=== PATIENT | female | born 1995 | race Caucasian/White ===

== ENCOUNTER 2025-02-05 15:53 | Outpatient (CLI) | payer OTHER, SELFPAY | END 2025-02-05 23:59 | disposition home or self-care (01) | LOC: RT 15:54 | PROVIDERS: PCP Pediatrics; Visit Provider Physician Assistant | DX: I49.1 Atrial premature depolarization (principal); I49.3 Ventricular premature depolarization; I47.11 Inappropriate sinus tachycardia, so stated; F41.9 Anxiety disorder, unspecified | CPT/HCPCS: 93270 ==

== ENCOUNTER 2025-02-20 14:02 | Outpatient (CLI) | payer OTHER, SELFPAY ==
--- OUTSIDE RECORDS SUMMARY | 2025-02-20 14:05 | XMS_ITS | Clinical Summary ---
Author Organization [facility] Address [address] [place] [address] Care Team Providers Care Creative/Art Director Name Role Phone Alex Rosario MD Primary Care Provider [phone] Allergies No known active allergies Medications ibuprofen (ADVIL,MOTRIN) 600 MG tablet Take 1 tablet by mouth Every 6 (Six) Hours. 30 tablet 07/19/2022 Active Active Problems Problem Noted Date Diagnosed Date 6 weeks follow-up 09/11/2022 Encounter for initial insert ion of intrauterine contraceptive device 09/11/2022 Pap test, as part of routine gynecological exami [facility] 09/11/2022 Resolved Problems Problem Noted Date Diagnosed Date Resolved Date Supervision of normal 08/14/2022 09/11/2022 Low back pain during pregnan cy, third trimester 08/14/2022 09/11/2022 07/17/2022 09/11/2022 False labor after 37 weeks o f gestation without delivery 07/12/2022 09/11/2022 screening for streptococcus B 06/23/2022 09/11/2022 UTI (urinary tract infection ) during , second trimester 03/29/2022 09/11/2022 Echogenic focus of heart of fetus affecting antepartum care of mother 03/10/2022 09/11/2022 Overview (03/10/2022): 32wk scan Declined genetic screening 08/26/2018 12/10/2021 labor in third trimester 07/22/2018 12/10/2021 labor in third trime ster without delivery 07/20/2018 12/10/2021 Group B streptococcal bacteriuria 07/20/2018 12/10/2021 07/19/2018 09/11/2022 Immunizations Immunization Administration Dates Next Due Tdap 05/05/2022 Family History Medical History Relation Name Comments Seizures Brother Heart murmur Father ADD / ADHD Mother Asthma Mother Bipolar disorder Mother Seizures Mother Relation Name Status Comments Brother Alive Father Alive Mother Alive Social History Tobacco Use Types Packs/Day Years Used Date Smoking Tobacco: Never Smokeless Tobacco: Never Tobacco Cessation:Counseling Given: Not Answered Alcohol Use Standard Drinks/Week Comments No 0 (1 standard drink = 0.6 oz pur e alcohol) AUDIT-C Answer Date Recorded Q1: How often do you have a drink containing alcohol? Never 07/17/2022 Q2: How many drinks containi ng alcohol do you have on a typical day when you are drinking? Patient does not drink Q3: How often do you have si x or more drinks on one occasion? Never 07/17/2022 [place] Depression Scale Answer Date Recorded Retired [place] Depression Score 0 09/08/2022 Retired EPD Scale: Thought of Harming Self Unrec ognized value 09/08/2022 Abuse Screen Answer Date Recorded Unsafe at Home or Work/School Not on file Feels Threatened by Someone? Not on file 06/2023 Does Anyone Keep You from Co ntacting Others or Doint Things Outside the Home? Not on file 07/20/2023 Physical Sign of Abuse Present Not on file 1 09/19/2022 Housing Stability Answer Date Recorded Current Living Arrangements Not on file 07/11 Potentially Unsafe Housing Conditions Not on tremaine e 07/20/2023 Family and Community Support Answer [place] e Recorded Help with Day-to-Day Activities Not on file 06/18/2023 Lonely or Isolated Not on file 06/18/2023 Employment Answer Date Recorded Do you want help finding or keeping work or a yuliana b? Not on file 06/18/2023 Disabilities Answer Date Recorded Concentrating, Remembering, or Making Decisions Difficulty Not on file 07/20/2023 Doing Errands Independently Difficulty Not on fi le 07/20/2023 Education Answer Date Recorded Help with school or training? Not on file Preferred Language Not on file 06/18/2023 Comments No Sex and Gender Information Value Date Recorded Sex Assigned at Not on file Legal Sex Female 1:14 PM EDT Gender Identity Not on file Sexual Orientation Not on file Occupation Industry Job Start Date Job End Date Not on file Not on file Not on file Not on file Last Filed Vital Signs Vital Sign Reading Time Taken Comments Blood Pressure 114/62 09/08/2022 9:54 AM EST Pulse 58 07/19/2022 7:55 AM EST Temperature 36.7 C (98.1 F) 07/19/2022 7:55 AM EST Respiratory Rate 18 09/08/2022 9:54 AM EST Oxygen Saturation 100% 07/21/2016 7:34 PM EST Inhaled Oxygen Concentration - - Weight 69.4 kg (153 lb) 09/08/2022 9:54 AM EST Height 154.9 cm (5' 0.98 ) 09/08/2022 9:54 AM ES T Body Mass Index 28.92 09/08/2022 9:54 AM EST Plan of Treatment Health Maintenance Due Date Last Done Comments Annual Gynecologic Pelvic an d Breast Exam 1995 ANNUAL PHYSICAL 08/19/2018 COVID-19 Vaccine (3 - 2023-2 5 season) 2024 07/29/2021, 06/08/2021 INFLUENZA VACCINE 03/10/2025 TDAP/TD VACCINES (3 - Td or Tdap) 05/05/2032 05/05/2022, 01/20/2020 HEPATITIS C SCREENING Completed 12/09/2021 Pneumococcal Vaccine 0-49 Aged Out No longer eligible based on patient's age to complete this topic Procedures Procedure Name Priority Date/Time Associated Diagnosis Comments OBSTETRIC PANEL Routine 12/09/2021 9:17 AM EDT from Last 3 Months or Most Recently Relevant to Health Maintenance Results * Obstetric Panel (12/09/2021 9:17 AM EDT) Hepatitis B Surface Ag Negative Negative [facility] Hep C Virus Ab <0.1 0.0 - 0.9 s/co ratio [facility] Comment: Negative: < 0.8 Indeterminate: 0.8 - 0.9 Positive: > 0.9 The CDC recommends that a positive HCV antibody result be followed up with a HCV Nucleic Acid Amplification test (110804). RPR Non Reactive Non Reactive [facility] Rubella Antibodies, IgG 1.20 Immune >0.99 index [facility] Comment: Non-immune <0.90 Equivocal 0.90 - 0.99 Immune >0.99 ABO Type O [facility] Rh Factor Positive [facility] Comment: Please note: Prior records for this patient's ABO / Rh type are not available for additional verification. Antibody Screen Negative Negative [facility] WBC 6.3 3.4 - 10.8 x10E3/uL [facility] RBC 4.86 3.77 - 5.28 x10E6/uL [facility] Hemoglobin 14.2 11.1 - 15.9 g/dL [facility] Hematocrit 43.0 34.0 - 46.6 % [facility] MCV 89 79 - 97 fL [facility] MCH 29.2 26.6 - 33.0 pg [facility] MCHC 33.0 31.5 - 35.7 g/dL [facility] RDW 12.0 11.7 - 15.4 % [facility] Platelets 213 150 - 450 x10E3/uL [facility] Neutrophil Rel % 67 Not Estab. % [facility] Lymphocyte Rel % 24 Not Estab. % [facility] Monocyte Rel % 6 Not Estab. % [facility] Eosinophil Rel % 1 Not Estab. % [facility] Basophil Rel % 1 Not Estab. % [facility] Neutrophils Absolute 4.4 1.4 - 7.0 x10E3/uL [facility] Lymphocytes Absolute 1.5 0.7 - 3.1 x10E3/uL [facility] Monocytes Absolute 0.4 0.1 - 0.9 x10E3/uL [facility] Eosinophils Absolute 0.0 0.0 - 0.4 x10E3/uL [facility] Basophils Absolute 0.0 0.0 - 0.2 x10E3/uL [facility] Immature Granulocyte Rel % 1 Not Estab. % [facility] Immature Grans Absolute 0.0 0.0 - 0.1 x10E3/uL [facility] 12/09/2021 9:17 AM EDT 12/09/2021 Narrative [facility]) - 12/10/2021 9:10 AM EDT Performed at: - [facility] [address] [place], [place] [id number] Housekeeper/Custodian/Laundry Worker: Alcides Porter PhD, Phone: [phone] Patient Fasting: N us Hayde Garcia MD LAB BLOOD ORDERABLES Final Result [facility] [address] [place] [address], [place] [phone] [facility] [address] [place] [address], [place] [phone] from Last 3 Months or Most Recently Relevant to Health Maintenance Insurance [employer] Advance Directives * CPR (Attempt to Resuscitate) (Latest Code Status on File) Date Activated Date Inactivated Comments 07/17/2022 12:43 PM 07/19/2022 3:02 PM Question Answer Comments Code Status (Patient has no pulse and is not breathing): CPR (Attempt to Resuscitate) Medical Interventions (Patie nt has pulse or is breathing): Full * CPR (Attempt to Resuscitate) Date Activated Date Inactivated Comments 08/26/2018 7:31 PM 08/28/2018 3:17 PM Question Answer Comments Code Status (Patient has no pulse and is not breathing): CPR (Attempt to Resuscitate) Medical Interventions (Patie nt has pulse or is breathing): Full * CPR (Attempt to Resuscitate) Date Activated Date Inactivated Comments 08/26/2018 9:37 AM 08/26/2018 7:31 PM Question Answer Comments Code Status (Patient has no pulse and is not breathing): CPR (Attempt to Resuscitate) Medical Interventions (Patie nt has pulse or is breathing): Full * CPR (Attempt to Resuscitate) Date Activated Date Inactivated Comments 07/19/2018 3:24 PM 07/22/2018 1:06 PM Question Answer Comments Code Status (Patient has no pulse and is not breathing): CPR (Attempt to Resuscitate) Medical Interventions (Patie nt has pulse or is breathing): Full Care Teams Creative/Art Director Relationship Specialty Start Date End Date Alex Rosario MD [address] [place] [address] PCP - General Internal Medicine 03/28/22
--- OUTSIDE RECORDS SUMMARY | 2025-02-20 14:05 | XMS_ITS | Data Portability ---
Author Organization [place] - NT [facility] & JUAN Carvalho ADMIN Address [address] [place] [address] Care Team Providers Care Brasswind Instrument Repairer Name Role Phone ALICIA ROSARIOEL Primary Care Provider Assessment No assessment recorded. Plan of Treatment Reminders Order Date Submit Date Provider Last Modified By Organization Details Last Modified Time Details Appointments None recorded. Lab CBC w/ auto diff 2024 025 [facility], [address], [place], [address], 5 16:13:12 CMP, serum or plasma 2024 025 [facility], [address], [place], [address], 5 16:13:14 TSH + free T4, serum 2024 025 [facility], [address], [place], [address], 5 16:13:11 Referral general surgeon referral 2023 024 CAMILLE Fajardo MD, [address], [place], [address], 4 09:40:20 Procedures holter monitor placement (PROC) - 72 hour 2024 025 [facility] (Centralized Scheduling), [address], [place], [address], 5 15:16:11 Surgeries None recorded. Imaging US, echocardiog annette, transthorac ic, complete, w/ color flow 2024 025 [facility], [address], [place], [address], 5 04:09:05 electrocard iogram 2024 025 [facility], [address], [place], [address], 5 09:17:20 US, renal 2023 024 [email or web address] [facility] (Centralized Scheduling), [address] [facility], [place], [address], 4 09:02:21 Medication Orders fluticasone propionate 50 mcg/actuati on nasal spray,suspe nsion 2024 025 [id number], [address] [place], [address], 5 09:14:50 loratadine 10 mg tablet 2024 025 [id number], [address] [place], [address], 5 09:14:54 omeprazole 40 mg capsule,del ayed release 2023 024 [email or web address] [facility]armacy #[id number], [address] [place], [address], 5 13:14:35 Patient TargetsNo targets recorded. Patient InstructionsNo instructions recorded. Reason for Referral General Surgeon Referral for Cholelithiasis without obstruction Referring Physician: Alex Rosario, Internal Medicine, Encounter Date: 04/08/2024 Results Created Date Observation Date Name Description Value Unit Range Abnormal Flag Note LastModifiedBy Organization Detail LastModifiedTime 09/25/19 25 09/26/2024 TSH+F REE T4 TSH 1.070 uIU/m L 0.450- 4.500 normal Not Available [facility] ([facility]) [address] [place], [address], 09/26/2024 16:13:11 09/25/19 25 09/26/2024 TSH+F REE T4 T4,free(dire ct) 1.08 NG/dL 0.82-1 .77 normal Not Available [facility] ([facility]) [address] [place], [address], 09/26/2024 16:13:11 09/25/19 25 09/26/2024 CBC WITH DIFFE RENTI AL/PL ATELE T WBC 8.6 x10e3 /uL 3.4-10 .8 normal Not Available [facility] ([facility]) [address] [place], [address], 09/26/2024 16:13:12 09/25/19 25 09/26/2024 CBC WITH DIFFE RENTI AL/PL ATELE T RBC 4.77 x10e6 /uL 3.77-5 .28 normal Not Available [facility] ([facility]) [address] [place], [address], 09/26/2024 16:13:12 09/25/19 25 09/26/2024 CBC WITH DIFFE RENTI AL/PL ATELE T hemoglobin 13.0 g/dL 11.1-1 5.9 normal Not Available [facility] ([facility]) [address] [place], [address], 09/26/2024 16:13:12 09/25/19 25 09/26/2024 CBC WITH DIFFE RENTI AL/PL ATELE T hematocrit 41.1 % 34.0-4 6.6 normal Not Available [facility] ([facility]) [address] [place], [address], 09/26/2024 16:13:12 09/25/19 25 09/26/2024 CBC WITH DIFFE RENTI AL/PL ATELE T MCV 86 fL 79-97 normal Not Available [facility] ([facility]) [address] [facility], [place], [address], 09/26/2024 16:13:12 09/25/19 25 09/26/2024 CBC WITH DIFFE RENTI AL/PL ATELE T MCH 27.3 pg 26.6-3 3.0 normal Not Available [facility] ([facility]) [address] [facility], [place], [address], 09/26/2024 16:13:12 09/25/19 25 09/26/2024 CBC WITH DIFFE RENTI AL/PL ATELE T MCHC 31.6 g/dL 31.5-3 5.7 normal Not Available [facility] ([facility]) [address] [facility], [place], [address], 09/26/2024 16:13:12 09/25/19 25 09/26/2024 CBC WITH DIFFE RENTI AL/PL ATELE T RDW 13.8 % 11.7-1 5.4 Not Available [facility] ([facility]) [address] [facility], [place], [address], 09/26/2024 16:13:12 09/25/19 25 09/26/2024 CBC WITH DIFFE RENTI AL/PL ATELE T platelets 225 x10e3 /uL 150-45 0 normal Not Available [facility] ([facility]) [address] [place], [address], 09/26/2024 16:13:12 09/25/19 25 09/26/2024 CBC WITH DIFFE RENTI AL/PL ATELE T neutrophils 74 % not estab. normal Not Available [facility] ([facility]) [address] [place], [address], 09/26/2024 16:13:12 09/25/19 25 09/26/2024 CBC WITH DIFFE RENTI AL/PL ATELE T lymphs 19 % not estab. normal Not Available [facility] ([facility]) [address] [facility], [place], [address], 09/26/2024 16:13:12 09/25/19 25 09/26/2024 CBC WITH DIFFE RENTI AL/PL ATELE T monocytes 6 % not estab. normal Not Available [facility] ([facility]) [address] [facility], [place], [address], 09/26/2024 16:13:12 09/25/19 25 09/26/2024 CBC WITH DIFFE RENTI AL/PL ATELE T eos 1 % not estab. normal Not Available [facility] ([facility]) [address] [facility], [place], [address], 09/26/2024 16:13:12 09/25/19 25 09/26/2024 CBC WITH DIFFE RENTI AL/PL ATELE T basos 0 % not estab. normal Not Available [facility] ([facility]) [address] [facility], [place], [address], 09/26/2024 16:13:12 09/25/19 25 09/26/2024 CBC WITH DIFFE RENTI AL/PL ATELE T immature cells CRUSHER TENDER Not Available [facility] ([facility]) [address] [place], [address], 09/26/2024 16:13:12 09/25/19 25 09/26/2024 CBC WITH DIFFE RENTI AL/PL ATELE T neutrophils (absolute) 6.4 x10e3 /uL 1.4-7. 0 normal Not Available [facility] ([facility]) [address] [place], [address], 09/26/2024 16:13:12 09/25/19 25 09/26/2024 CBC WITH DIFFE RENTI AL/PL ATELE T lymphs (absolute) 1.6 x10e3 /uL 0.7-3. 1 normal Not Available [facility] ([facility]) [address] [facility], [place], [address], 09/26/2024 16:13:12 09/25/19 25 09/26/2024 CBC WITH DIFFE RENTI AL/PL ATELE T monocytes(ab solute) 0.5 x10e3 /uL 0.1-0. 9 normal Not Available [facility] ([facility]) [address] [facility], [place], [address], 09/26/2024 16:13:12 09/25/19 25 09/26/2024 CBC WITH DIFFE RENTI AL/PL ATELE T eos (absolute) 0.0 x10e3 /uL 0.0-0. 4 normal Not Available [facility] ([facility]) [address] [facility], [place], [address], 09/26/2024 16:13:12 09/25/19 25 09/26/2024 CBC WITH DIFFE RENTI AL/PL ATELE T baso (absolute) 0.0 x10e3 /uL 0.0-0. 2 normal Not Available [facility] ([facility]) [address] [place], [address], 09/26/2024 16:13:12 09/25/19 25 09/26/2024 CBC WITH DIFFE RENTI AL/PL ATELE T immature granulocytes 0 % not estab. Not Available [facility] ([facility]) [address] [place], [address], 09/26/2024 16:13:12 09/25/19 25 09/26/2024 CBC WITH DIFFE RENTI AL/PL ATELE T immature grans (abs) 0.0 x10e3 /uL 0.0-0. 1 Not Available [facility] ([facility] [address] [place], [address], 09/26/2024 16:13:12 09/25/19 25 09/26/2024 CBC WITH DIFFE RENTI AL/PL ATELE T NRBC CRUSHER TENDER Not Available [facility] ([facility]) [address] [facility], [place], [address], 09/26/2024 16:13:12 09/25/19 25 09/26/2024 CBC WITH DIFFE RENTI AL/PL ATELE T hematology comments: CRUSHER TENDER Not Available [facility] ([facility]) [address] [facility], [place], [address], 09/26/2024 16:13:12 09/25/19 25 09/26/2024 COMP. METAB OLIC PANEL (14) glucose 89 mg/dL 70-99 normal Not Available [facility] ([facility]) [address] [facility], [place], [address], 09/26/2024 16:13:14 09/25/19 25 09/26/2024 COMP. METAB OLIC PANEL (14) BUN 10 mg/dL 6-20 normal Not Available [facility] ([facility]) [address] [facility], [place], [address], 09/26/2024 16:13:14 09/25/19 25 09/26/2024 COMP. METAB OLIC PANEL (14) creatinine 0.66 mg/dL 0.57-1 .00 normal Not Available [facility] ([facility]) [address] [facility], [place], [address], 09/26/2024 16:13:14 09/25/19 25 09/26/2024 COMP. METAB OLIC PANEL (14) BUN/creatini ne ratio 15 9-23 normal Not Available [facility] ([facility]) [address] [facility], [place], [address], 09/26/2024 16:13:14 09/25/19 25 09/26/2024 COMP. METAB OLIC PANEL (14) sodium 142 mmol/ L 134-14 4 normal Not Available [facility] ([facility]) [address] [facility] [place], [address], 09/26/2024 16:13:14 09/25/19 25 09/26/2024 COMP. METAB OLIC PANEL (14) potassium 4.5 mmol/ L 3.5-5. 2 normal Not Available [facility] ([facility]) [address] [facility] [place], [address], 09/26/2024 16:13:14 09/25/19 25 09/26/2024 COMP. METAB OLIC PANEL (14) chloride 109 mmol/ L 96-106 above high normal Not Available [facility] ([facility]) [address] [facility] [place], [address], 09/26/2024 16:13:14 09/25/19 25 09/26/2024 COMP. METAB OLIC PANEL (14) carbon dioxide, total 21 mmol/ L 20-29 normal Not Available [facility] ([facility]) [address] [facility] [place], [address], 09/26/2024 16:13:14 09/25/19 25 09/26/2024 COMP. METAB OLIC PANEL (14) calcium 9.0 mg/dL 8.7-10 .2 normal Not Available [facility] ([facility]) [address] [facility] [place], [address], 09/26/2024 16:13:14 09/25/19 25 09/26/2024 COMP. METAB OLIC PANEL (14) protein, total 6.5 g/dL 6.0-8. 5 normal Not Available [facility] ([facility]) [address] [facility] [place], [address], 09/26/2024 16:13:14 09/25/19 25 09/26/2024 COMP. METAB OLIC PANEL (14) albumin 4.4 g/dL 3.9-4. 9 normal Not Available [facility] ([facility]) [address] [facility] [place], [address], 09/26/2024 16:13:14 09/25/19 25 09/26/2024 COMP. METAB OLIC PANEL (14) globulin, total 2.1 g/dL 1.5-4. 5 Not Available [facility] ([facility]) [address] [facility] [place], [address], 09/26/2024 16:13:14 09/25/19 25 09/26/2024 COMP. METAB OLIC PANEL (14) bilirubin, total 0.6 mg/dL 0.0-1. 2 normal Not Available [facility] ([facility]) [address] [facility] [place], [address], 09/26/2024 16:13:14 09/25/19 25 09/26/2024 COMP. METAB OLIC PANEL (14) alkaline phosphatase 61 IU/L 44-121 normal Not Available [facility]) [address] [facility] [place], [address], 09/26/2024 16:13:14 09/25/19 25 09/26/2024 COMP. METAB OLIC PANEL (14) AST (SGOT) 22 IU/L 0-40 normal Not Available [facility] ([facility]) [address] [facility] [place], [address], 09/26/2024 16:13:14 09/25/19 25 09/26/2024 COMP. METAB OLIC PANEL (14) ALT (SGPT) 23 IU/L 0-32 normal Not Available [facility] ([facility]) [address] [facility] [place], [address], 09/26/2024 16:13:14 04/14/20 24 , [email or web address] foote No observ ation record ed. [email or web address] Not Available 09:22:22 08/2305/02/2024 renal ,bila teral US [facility] [address] [place] [address] Phone: Fax: Name: EMILY BOBO SA Exam Date: : [birth year] Age 28 years Gender : F Access ion: [id number] Physic kevin: Alex Rosario Facili ty: [facility] Facili ty HSV: Outpat ient Exam: RENAL, BILATE RAL US EXAM:U S Retrop eriton eal Limite d, Renal CLINIC AL INDICA TION:h ydrone phrosi s TECHNI QUE:Re al-sundeep e limite d ultras ound of the retrop eriton eum with image docume ntatio n. COMPAR ROYA:N o releva nt prior studie s availa ble. FINDIN GS: RIGHT KIDNEY :Unrem arkabl e.The right kidney measur es 10.7 cm in length . LEFT KIDNEY :Unrem arkabl e.The left kidney measur es 9.7 cm in length . IMPRES SHARON:? Normal retrop eriton eal ultras ound. No hydron ephros is. Electr onical ly signed by:Lucas foote 11/2023 07:52 PM EDT RP Workst ation: [id number] Dictat ed By: Lucas Dobson Transc ribed By: Transc ribed On: 9:23 AM Electr onical ly signed by: Lucas Dobson Thank you for referr sandra BOBO EMILY SA to [facility]. Legall y authen ticate d by MP BOYER 05-02 09:23: 00 CC'ed Logic: Orderi ng Provid er: AMINA CAMEJO CC Provid er: AMINA CAMEJO Attend ing Provid er: AMINA CAMEJO Referr ing Provid er: AMINA CAMEJO Admitt ing Provid er: AMINA [address] [place] [address] - Physical Therapy [address] [facility], [place], [address], 06/11/2024 11:16:05 10/22/19 25 10/10/[address] or place ment (PROC ) No observ ation record ed. [facility] [address] [place], [address], 10/26/2024 20:42:37 10/22/19 25 10/10/2024 HOLTER MONITO R EMILY BOBO [facility] [place] 5 2 HOLTER REPORT PROVID ER: Hugo Guthrie MD, [facility] Date of study was 2024 to 2024. REQUES CAROL BY: Alex Rosario . FINDIN GS: Underl pebbles rhythm was sinus. Heart rate rangin g from 41 to 127 beats per minute . Averag e heart rate of 68 beats per minute . 16 PVCs were noted. No PACs noted. Patien t trigge red event corres ponded to sinus rhythm with heart rate rangin g from 51 to 90 beats per minute with no associ ated arrhyt hmias. IMPRES SHARON: Underl pebbles rhythm was sinus. The patien t's sympto ms were not associ ated with any arrhyt hmias. DICTAT ED BY: Hugo Guthrie MD, [facility] JT/MOD L DD: 2024 14:14: 50 DT: 2024 16:09: 51 [id number] Electr onical ly Signed By: PAMELA Islas 0 10-22 13:47: 16 CC'ed Logic: Orderi ng Provid er: PAMELA south[address] [facility] - Physical Therapy [address], [place], [address], 10/26/2024 19:07:25 12/05/19 25 12/05/2024 elect robin vega am No observ ation record ed. [facility] [address], [place], [address], 12/05/2024 09:17:31 03/28/20 25 12/04/2024 elect robin vega am No observ ation record ed. [facility] Heart [facility] [address], [place], [address], 12/05/2024 09:17:20 Result Notes None recorded. Problems Name Problem SNOMED Code Status Onset Date Resolution Date Notes Provider Name and Address Organization Details Recorded Time Near syncope 946597693 Active 2024 Hugo Guthrie MD [address], [place], [address] , [place] - NT [facility] & [place] 5 09:40:54 Allergic rhinitis 65137580 Active China coronel, [facility] & [place] 2 15:37:10 Esophageal dysmotility 336654752 [facility] [place] 2 15:37:10 Fatigue 57085851 Active China coronel, [place] - [facility] & [place] 2 15:37:10 Problem Notes None recorded. Procedures Surgical History Date Name Laterality Status Provider Name and Address Organization Details Recorded Time 04/23/20 24 Cholecystectomy completed Alfonso Krishnan [facility] & [place] 04/29/2024 14:18:01 07/17/20 22 Date of Last Pap Smear completed Althea Negrete [facility] & [place] 04/08/2024 13:25:38 Imaging Results None recorded. Procedure Notes None recorded. Medical Equipment None Reported. Allergies No known drug allergies Medications Name Sig Start Date Stop Date Status Note LastModified by Organization Details LastModified Time azithromyci n 250 mg tablet TAKE 2 TABLETS BY MOUTH TODAY, THEN TAKE 1 TABLET DAILY FOR 4 DAYS 04/07 completed Not Available Not Available Not Available omeprazole 40 mg capsule,del ayed release TAKE 1 CAPSULE BY MOUTH EVERY DAY active Not Available Not Available No t Available acetaminoph en 500 mg tablet 09/25 completed Not Available Not Available Not Available ketorolac 10 mg tablet 04/07 completed Not Available Not Available Not Available prednisone 10 mg tablets in a dose pack PLEASE SEE ATTACHED FOR DETAILED DIRECTION S 09/25 completed Not Available Not Available Not Available oxycodone-a cetaminophe n 5 mg-325 mg tablet 05/06 completed Not Available Not Available Not Available Pre-Rosi tablet Take 1 tablet every day by oral route. 04/07 completed Not Available Not Available Not Available meclizine 25 mg tablet TAKE 1 TABLET 3 TIMES A DAY BY ORAL ROUTE NEEDED. 09/25 completed Not Available Not Available Not Available cephalexin 500 mg capsule TAKE 1 CAPSULE BY MOUTH THREE TIMES A DAY FOR 3 DAYS THEN 1 CAPSULE EVERY DAY THEREAFTE R 06/20 completed Not Available Not Available Not Available azelastine 137 mcg (0.1 %) nasal spray INSTILL 2 SPRAYS IN EACH NOSTRIL TWICE DAILY active Not Available Not Available No t Available ibuprofen 600 mg tablet 09/25 completed Not Available Not Available Not Available Pepcid 20 mg tablet Take 1 tablet twice a day by oral route. 04/08 completed Not Available Not Available Not Available methylpredn isolone 4 mg tablets in a dose pack TAKE 6 TABLETS ON DAY 1 DIRECTED ON PACKAGE AND DECREASE BY 1 TAB EACH DAY FOR A TOTAL OF 6 DAYS 04/07 completed Not Available Not Available Not Available albuterol sulfate HFA 90 mcg/actuati on aerosol inhaler INHALE 2 PUFFS INTO THE LUNGS EVERY 4 HOURS NEEDED 12/04 completed Not Available Not Available Not Available ondansetron 4 mg disintegrat ing tablet 04/07 completed Not Available Not Available Not Available fluticasone propionate 50 mcg/actuati on nasal spray,suspe nsion INSTILL 2 SPRAYS BY INTRANASA L ROUTE EVERY DAY 12/04 completed Not Available Not Available Not Available escitalopra m 10 mg tablet TAKE 1 TABLET BY MOUTH EVERY DAY 01/20 completed Not Available Not Available Not Available escitalopra m 20 mg tablet TAKE 1 TABLET BY MOUTH EVERY DAY active Not Available Not Available No t Available Allergy Relief (loratadine ) 10 mg tablet TAKE ONE TABLET BY MOUTH EVERY DAY active Not Available Not Available No t Available Prilosec OTC 20 mg tablet,beatriz yed release Take by oral route. 04/08 completed Not Available Not Available Not Available Vitals Date Recorded Body height Body mass index (BMI) Body weight Body temperature Heart rate Systolic blood pressure Diastolic blood pressure Provider Name and Address Organization Details Last Updated DateTime 5 154.94 cm 26.5 kg/m2 12737.3 7 g 98.9 [degF] 82 /min 114 mm[Hg] 71 mm[Hg] Althea ZAMUDIO - [facility] & [place] 5 13:16:01 Date Recorded Body height Body mass index (BMI) Body weight Oxygen saturation Oxygen saturation in Arterial blood by Pulse oximetry Heart rate Systolic blood pressure Diastolic blood pressure Provider Name and Address Organization Details Last Updated DateTime 5 154.94 cm 26.5 kg/m2 15191.9 3 g 98 % 98 % 55 /min 118 mm[Hg] 80 mm[Hg] Irina Abdirizak ZAMUDIO - [facility]NT [facility] & [place] 5 09:16:11 Date Recorded Body temperature Body weight Heart rate Systolic blood pressure Diastolic blood pressure Provider Name and Address Organization Details Last Updated DateTime 04/08/2024 98.7 [degF] 67669.1 4 g 70 /min 109 mm[Hg] 73 mm[Hg] Althea Caden ROBB - [facility] & [place] 4 13:30:41 Date Recorded Body height Body mass index (BMI) Body weight Body temperature Oxygen saturation Oxygen saturation in Arterial blood by Pulse oximetry Heart rate Systolic blood pressure Diastolic blood pressure Provider Name and Address Organization Details Last Updated DateTime 4 154.94 cm 23.1 kg/m2 01461.2 7 g 97.2 [degF] 100 % 100 % 89 /min 102 mm[Hg] 72 mm[Hg] Alfonso ZAMUDIO - [facility]NT [facility] & [place] 4 09:01:24 Date Recorded Body height Body mass index (BMI) Body weight Body temperature Oxygen saturation Oxygen saturation in Arterial blood by Pulse oximetry Heart rate Systolic blood pressure Diastolic blood pressure Provider Name and Address Organization Details Last Updated DateTime 4 154.94 cm 23.8 kg/m2 65043.6 4 g 98.6 [degF] 100 % 100 % 96 /min 112 mm[Hg] 72 mm[Hg] Alfonso Brown [facility] & [place] 09:12:56 Social History Question Answer Notes LastModified by Organizat ion Details LastModified Time Tobacco Smoking Status Never Smoker Althea coronel, ROBB [facility] & [place] 04/08/2024 13:25:45 Do You Have An Advance Directive? No [email or web address] Information not available 04/08/2024 Do You Wear A Helmet When Biking? Yes [email or web address] Information not available 04/08/2024 Are You Blind Or Do You Have Difficulty Seeing? Yes Glasses [email or web address] Information not available 04/08/2024 Is Blood Transfusion Acceptable In An Emergency? Yes [email or web address] Information not available 04/08/2024 What Is Your Level Of Caffeine Consumption? None Information not available 12/04/2024 In The 14 Days Before Symptom Onset, Have You Had Close Contact With A Laboratory-confir med COVID-19 While That Case Was Ill? No [email or web address] Information not available 04/08/2024 In The 14 Days Before Symptom Onset, Have You Had Close Contact With A Person Who Is Under Investigation For COVID-19 While That Person Was Ill? No [email or web address] Information not available 04/08/2024 Have You Been To An Area Known To Be High Risk For COVID-19? No [email or web address] Information not available 04/08/2024 Are You Deaf Or Do You Have Serious Difficulty Hearing? No [email or web address] Information not available 04/08/2024 What Type Of Diet Are You Following? REGULAR Information not available 04/08/2024 Have You Processed Blood Or Body Fluids From An Ebola Virus Disease Patient Without Appropriate PPE? No [email or web address] Information not available 04/08/2024 Do You Reside In Or Have You Traveled To An Area Where Ebola Virus Transmission Is Active? No [email or web address] Information not available 04/08/2024 Have There Been Any Changes To Your Family Or Social Situation? No [email or web address] Information no t available 04/08/2024 What Is The Fluoride Status Of Your Home? Fluoridated [email or web address] Information not available 04/08/2024 Are There Any Guns Present In Your Home? No [email or web address] Information not available 04/08/2024 Have You Recently Or Are You Planning To Travel To An Area With Zika Virus? No Information not available 04/08/2024 Do You Use Insect Repellent Routinely? No [email or web address] Information not available 04/08/2024 Do You Feel Safe At Home? Yes [email or web address] Information not available 04/08/2024 Do You Have A Medical Power Of Dumbwaiter Operator? No [email or web address] Information not available 04/08/2024 What Was The Date Of Your Most Recent Tobacco Screening? 04/07/2024 Information not available 04/08/2024 Do You Have Any Pets? Yes Outdoors [email or web address] Information not available 04/08/2024 What Is Your Relationship Status? [email or web address] Information not available 04/08/2024 Do You Use Your Seat Belt Or Car Seat Routinely? Yes [email or web address] Information not available 04/08/2024 Are You Sexually Active? Yes Information not available 04/08/2024 Do You Have Smoke And Carbon Monoxide Detectors In Your Home? Yes [email or web address] Information not available 04/08/2024 Are You Passively Exposed To Smoke? No [email or web address] Information no t available 04/08/2024 Do You Use Sunscreen Routinely? No [email or web address] Information not available 04/08/2024 Has Tobacco Cessation Counseling Been Provided? No Information not available 04/08/2024 Do You Have Difficulty Walking Or Climbing Stairs? No [email or web address] Information not available 04/08/2024 Are You Currently In School? No [email or web address] Information not available 04/08/2024 Sex: Female Functional Status Question Answer Note LastModified by Organizat ion Details LastModified Time Do you use any illicit or recreational drugs? No [email or web address] Information not available 04/08/2024 Do you or have you ever used any other forms of tobacco or nicotine? No [email or web address] Information not available 04/08/2024 What is your level of alcohol consumption? None [email or web address] Information not available 04/08/2024 Are you currently employed? Yes [email or web address] Information not available 04/08/2024 Do you have transportation difficulties? No [email or web address] Information not available 04/08/2024 Are you able to walk? YESWOREST [email or web address] Information not available 04/08/2024 Do you have difficulty doing errands alone? No [email or web address] Information not available 04/08/2024 Are you able to care for yourself? Yes [email or web address] Information not available 04/08/2024 Do you have difficulty dressing or bathing? No [email or web address] Information not available 04/08/2024 What is your exercise level? Moderate [email or web address] Information not available 04/08/2024 Mental Status Question Answer Note LastModified by Organizat ion Details LastModified Time Do you feel stressed (tense, restless, nervous, or anxious, or unable to sleep at night)? [id number] [email or web address] Information not available 04/08/2024 Do you have difficulty concentrating, remembering or making decisions? No [email or web address] Information no t available 04/08/2024 Family History Relationship Description Onset Age of this Age Resolved Age Notes LastModified by Organization Details LastModified Time Father No current problems or disability [email or web address] Not available 13:27:26 Mother No current problems or disability Not available 13:27:26 Medical History Condition Response Coronary Artery Disease N Gout N Other N Blood Diseases N Kidney Stones N Hyperthyroidism N Blood Transfusion N Breast Cancer N COPD N Depression N Lung Disease N Hypothyroidism N Defects or Inherited Disease N Developmental or Behavioral Disorders N Breast Problem N Difficulty Swallowing N Anesthesia Complications N Anxiety Disorder N Meniere's disease N Muscle, Joint, or Bone Problems N Vision or Eye Problems N Arthritis N Infertility N Polyps N Cancer N Stroke N Varicosities N Endometriosis N Bladder or Kidney Problems N High Cholesterol N Liver Disease N Headaches N Fibromyalgia N Kidney Disease N Allergies/Hayfever N Heart Problems N Ear or Hearing Problems N Hospitalizations N Thyroid Problems N GI Problems N ADD/ADHD N Eating Disorder N Skin Problems N Anemia N Constipation N Mental Illness N Diabetes N Ovarian Cancer N Bedwetting N Seizures/Epilepsy N Tuberculosis N AIDS/HIV N Eczema N Abuse/Domestic Violence N Diverticulitis N Asthma N Reflux/GERD N Jaundice N Hepatitis N Heart Disease N Pulmonary Embolism N Chronic Ear Infections N Pre-Eclampsia N Hypertension N Chicken Pox N Autism Spectrum Disorder (ASD) N Osteoporosis N Thrombophilias N Gynecological History Statement/Question Response Abnormal Pap N Flow Moderate Date of LMP 04/07/2024 Sexually Active? Y Menses Monthly Y Duration of Flow (days) 7 Date of Last Pap Smear 07/17/2022 Current Control Method IUD Age at Menarche 14 Obstetrics History GPAL:G 0 P 0 0 0 0 Immunizations Vaccine Type Date Status Note Provider Nam e and Address Organization Details Recorded Time DTaP, 5 pertussis antigens 4 completed Not Available [facility] 02/08/2023 13:26:40 COVID-19, mRNA, LNP-S, PF, 30 mcg/0.3 mL dose 1 completed Alfonso coronel [place] - [facility] & [place] 04/14/2024 09:01:40 IPV 4 completed Not Available [facility] 02/08/2023 13:26:39 DTaP, 5 pertussis antigens 6 completed [facility] Available [facility] 02/08/2023 13:26:40 Tdap 0 completed Alfonso coronel [place] - [facility] & [place] 04/14/2024 09:01:40 Hib (PRP-T) 4 completed Not Available [facility] 02/08/2023 13:26:40 Tdap 6 completed Not Available [facility] 02/08/2023 13:26:39 Hib (PRP-T) 4 completed Not Available [facility] 02/08/2023 13:26:39 Hep B, adolescent or pediatric 4 completed Not Available [facility] 02/08/2023 13:26:39 MMR 6 completed China coronel, [place] - [facility] - [place] & [place] 06/19/2022 15:37:10 Hib (PRP-T) 6 completed Not Available [facility] 02/08/2023 13:26:39 Hib (PRP-T) 4 completed Not Available [facility] 02/08/2023 13:26:40 IPV 4 completed Not Available [facility] 02/08/2023 13:26:39 HPV9 9 completed Not Available [facility] 02/08/2023 13:26:39 Influenza, injectable,antonieta valent, preservative free, pediatric 9 completed Alfonso coronel, [place] [facility] [place] & [place] 04/14/2024 09:01:40 IPV 4 completed Not Available [facility] 02/08/2023 13:26:39 DTaP, 5 pertussis antigens 4 completed Not Available [facility] 02/08/2023 13:26:40 IPV 8 completed Not Available [facility] 02/08/2023 13:26:39 Hep B, adolescent or pediatric 4 completed Not Available [facility] 02/08/2023 13:26:39 Hep B, adolescent or pediatric 4 completed Not Available [facility] 02/08/2023 13:26:39 DTaP, 5 pertussis antigens 4 completed Not Available [facility] 02/08/2023 13:26:40 MMR 8 completed China Parry null, [place] [facility] [place] & [place] 06/19/2022 15:37:11 HPV9 9 completed Not Available [facility] 02/08/2023 13:26:39 influenza nasal, unspecified formulation 1 completed Alfonso coronel, [place] [facility] [place] & [place] 04/14/2024 09:01:40 HPV9 9 completed Not Available [facility] 02/08/2023 13:26:39 COVID-19, mRNA, LNP-S, PF, 30 mcg/0.3 mL dose 1 completed Alfonso coronel, [place] [facility] [place] & [place] 04/14/2024 09:01:40 Tdap 2 completed Alfonso [place] [facility] [place] 04/14/2024 09:01:40 OPV 8 completed Dede Frost null[place] [facility] [place] & [place] 10/16/2022 17:01:22 DTP-Hib 6 completed Dede Frost [place] [facility] [place] 10/16/2022 17:01:22 HPV, quadrivalent 9 completed Dede Medels [place] [facility] [place] & [place] 10/16/2022 17:01:22 HPV, quadrivalent 9 completed Dede Medels [place] [facility] 10/16/2022 17:01:22 HPV, quadrivalent 9 completed Dede Medels [place] [facility] 10/16/2022 17:01:22 DTaP, unspecified formulation 8 completed Dede eMdels [place] [facility] [place] & [place] 10/16/2022 17:01:22 Influenza, split virus, quadrivalent, PF 6 completed Dede Medels [place] [facility] [place] & [place] 10/16/2022 17:01:22 Past Encounters Encounter ID Performer Location Encounter Start Date Encounter Closed Date Diagnosis/Indication Diagnosis SNOMED-CT Code Diagnosis ICD10 Code Diagnosis Note [id number] Kyle Cruz MD [address],[facility] [address] [place] [address] 06/16/2022 10:21:13 06/16/2022 11:38:09 Viral syndrome 129582524 B34.9 tested daughter for covid and flu and all negative. treat symptomati omer at this time. reviewed meds that can be taken with [id number] Alex Rosario MD [facility] and [facility] n [address] [place] [address] 06/20/2022 10:30:48 06/20/2022 11:50:04 Cough 81749709 R05.9 Supportive measures. Can use tylenol and/or motrin as needed for pain and fever, whichever is age appropriat e. Nasal saline and suctioning for nasal congestion . Oral hydration and monitor for dehydratio n. Return for worsening symptoms of poorly controlled fever, worsening oral intake, and respirator y distress. Discussed Cold/Cough meds based on age appriopria te use and dosage as well as risk with . Out of window of tamiflu. RTC for worsening sxs. Influenza caused by Influenza A virus 110968916 J09.X2 [id number] MD Ambreen Francis and [facility] [place], [place] [address] [place] [address] 10/16/2022 15:36:05 10/16/2022 17:40:45 Bilateral earache [id number] H92.03 Physical exam is very benign. Bilateral ear exam is completely normal. No sinus pressure or tenderness on exam. Symptoms have completely resolved as of noon today. Reassuranc e given to the patient. Return to clinic for any new, worsening, or changing symptoms. A total of 20 minutes was spent in regard to this patient's visit reviewing labs and/or imaging, reviewing the patients records, conducting a physical examinatio n, preparing the treatment plan, and discussing the treatment plan with its risk and benefits with the patient today. All questions have been answered. Dizziness [id number] R42 [id number] Bambi Kenyon DNP, CR[employer]HER [employer]ER-C, [employer] [address] [place] [address] 02/08/2023 13:25:11 02/08/2023 13:50:36 Bullous myringitis of right ear [id number] 776664 H73.011 Upper resp iratory infection [id number] J06.9 [id number] MD Ambreen Francis and [facility] [place] [place] [address] [place] [address] 04/08/2024 13:19:45 04/08/2024 14:08:13 Gastroesophageal reflux disease without esophagitis [id number] K21.9 Cont PPIReferra l to surgery for CCY evaluation Renal US given hx of hydronephr osis in past US...pt was noncomplia nt with FU in 2021. A total of thirty minutes was spent in regard to this patient's visit reviewing labs and/or imaging, reviewing the patients records, conducting a physical examinatio n, preparing the treatment plan, and discussing the treatment plan with its risk and benefits with the patient today. All questions have been answered. Cholelithi asis without obstruction [id number] K80.20 Hydronephrosis 38163697 N13.30 [id number] Marcia Fajardo MD [facility] [address] [place] [address] 04/14/2024 08:51:35 04/14/2024 09:29:36 Cholelithiasis without obstruction [id number] K80.20 Symptoms seem most consistent with biliary colic as they are not improving with PPI usage, began during and for a time have been improved with dietary changes. I have scheduled the patient for robotic assisted laparoscop ic multiport cholecyste ctomy. Informed consent was obtained. Risks and benefits of the procedure, including but not limited to, bleeding, infection, damage to surroundin g structures and ongoing symptoms were discussed. Standard of care efforts are taken to minimize risks. Typical hospital stay and recovery were reviewed. The typical postoperat faith pain regimen and avoidance of narcotics were discussed. The patient verbalized understand ing of the plan including the risks and benefits. Appropriat e preoperati ve testing as clinically indicated were ordered as a part of this patient's care. Epigastric pain [id number] R10.13 [id number] Marcia Fajardo MD [facility] [address] [facility] [address] [place] [address] 05/06/2024 09:01:46 05/06/2024 09:17:20 Chronic cholecystitis with calculus 03983769 K80.10 Stable postop. No restrictio ns. Was given work release. F/U with mo PRN. [id number] Alex Rosario MD [facility] [address] [place] [address] 09/25/2024 12:59:00 09/25/2024 13:47:14 Palpitations 61494036 R00.2 I did review today the EKG from the ER, which showed normal sinus rhythm. I did review the CMP, troponin, and CBC. Dr. Maninder ni from the ER visit on September 11 also reviewed today. We will repeat some labs, including a thyroid which was not performed in the ER. We will order a 72 hour Holter monitor to be completed at [facility] as well. I suspect this is precaution mariangel, but given the episode of palpitatio ns and the persistent dizziness, will ensure no irregular heart rhythm as it is possible source. Chronic mu coid otitis media 11596930 H65.31 Continue the fluticason e which was only used for a brief period of time. Recommende d 2 sprays each nostril daily for the next 2-3 weeks at minimum. Add on loratadine as well. No sign of infection on exam today. A total of thirty minutes was spent in regard to this patient's visit reviewing labs and/or imaging, reviewing the patients records, conducting a physical examinatio n, preparing the treatment plan, and discussing the treatment plan with its risk and benefits with the patient today. All questions have been answered. [id number] Hugo Guthrie MD [facility] [address] [place] [address] 12/04/2024 09:02:38 12/04/2024 09:50:02 Near syncope [id number] R55 Echo to evaluate EF, diastolic function, valves and pulmonary pressuresS nani well hydrated Health Concerns Section Related Observation LastModified by Organization Detai ls LastModified Time None Recorded Concern Status LastModified by Organization Details LastModified Time None Recorded Advance Directives Directive N: Payers Insurance Date Sequence Insurance Name Policy Number Policy Gonzales Covered Member ID Gonzales Member ID Guarantor Name 09/25/2024 1 [facility] [id number] Zeynep Bobo [id number] Zeynep Bobo 12/04/2024 1 [facility] [id number] Zeynep Bobo [id number] Zeynep Bobo 09/25/2024 1 [facility] (MEDICAID HMO) Zeynep Jackson [id number] Zeynep Bobo Notes Date Note Type Note Provider Name and Address Organization Details Recorded Time 4 text/html Upper abd painWorsened at nightWorsened when laying down at nightWent to ED where bedside US shows gallstonesUS 2 years ago with gallstones as well (done while )Started on H2 luis and PPI recently and sxs some betterSxs better since these meds and ED visit and diet changes.No dysphagia, but gerd is present from time to timeNo weight loss, no feverBowel movements normalDenies urinary symptoms Alex Rosario MD [address], [place], [address], [facility] - [facility] - [place] & [place] 04/08/2024 21:51:24 4 text/html Woman referred for epigastric pain. It is sharp and radiates to her back and right upper quadrant. It has been present for some time, starting while she was with her last child in 2021. She states that she has avoided greasy food for the past several years although the symptoms are starting to worsen again. At this point they occur mostly at night. she does take PPI, no improvement with symptoms. She did have recent ER visit with normal CBC and CMP. She underwent ultrasound in 2021 showing gallstones and a thick-walled gallbladder. Marcia Fajardo MD [address], [place], [address], [facility] - [facility] & [place] 04/14/2024 09:39:01 4 text/html Robotic cholecystectomy. Pathology showed gallstones and chronic cholecystitis. She feels well overall, has returned to work with lifting restrictions. Marcia Fajardo MD [address], [place], [address], [place] - [facility] & [place] 05/06/2024 09:20:07 5 text/html Zeynep is a 29-year-old lady who works as a nurse on the med surge unit at [employer] who presents today for ER follow-up as well as persistent symptoms. 1. ER visit: Patient presented to the [facility] on 09/11/2024 after experiencing bilateral ear pain, fullness, and some dizziness. She described the dizziness as more unsteadiness, specifically stating it was not vertigo or presyncope like feelings. At time there was no chest pain, shortness for breath, or other associated symptoms. Exam in the ER included an EKG which was unremarkable. It also included a CMP, troponin, and CBC. She was monitored for a period time and ultimately felt able to be released. The symptoms of dizziness and ear discomfort were ultimately attributed to bilateral otitis media with a fusion. She was given prednisone and told to follow-up if symptoms persisted. Patient only took 1 day of the methylprednisolone as she felt side effects were prohibited, including shakiness, flushed, and overall feeling unwell. She did start fluticasone nasally which has not really change the symptoms. 2.) patient presents today with persistent symptoms of ear fullness, right-sided head discomfort, and the same dizziness feeling. However, the patient now reports that yesterday when writing as a front seat passenger in the car from her work to home, she experienced an episode that she described as a feeling of full body numbness or chill. It was associated with a rapid, uncomfortable heartbeat. She had shakiness, and some mild dyspnea but no chest pain. There was no new dizziness associated with that episode. Patient laid back in the car and breathe through the episode, in the symptoms ultimately resolved. They have not returned. She has had no prior, similar episodes. Overall she feels better today, but the ear discomfort, worse on the right versus the left and the headache have persistent as well as the occasional dizzy spells Alex Rosario MD [address], [place], [address], [facility] & [place] 09/26/2024 07:50:11 5 text/html 29 F here for evaluation pre syncopeRefer: Dr Rosario She has 2 presyncope episodes x 2-felt cold, numb, presyncopish. Second episode noted HR was fast. Never syncopizedNo prior CAD/CVAShe is active works as [employer] at [employer] chest pain, shortness of breath, PND, orthopnea, peripheral edema, palpitations EKG 12/04/24 : NSR 62 short IA 96, normal axis and intervals Holter Patient triggered event corresponded to sinus rhythm with heart rate rangingfrom 51 to 90 beats per minute with no associated arrhythmias.Underlying rhythm was sinus.The patient's symptoms were not associated with any arrhythmias. Hugo Guthrie MD [address], [place], [address], [facility] & [place] 12/04/2024 16:29:52 OBGyn Episode No OBEpisode recorded.
--- NOTE | 2025-02-20 14:15 | CA_ITS ---
APPROVED REPORT EXAM: Comprehensive 2D, Doppler, and color-flow Echocardiogram Technical System Analyst: Cassie Gordon RT(R) Ht: 5 ft 1 in Wt: 150lbs BSA: 1.67 BP: 123/67 mmHg Indications: inappropriate sinus tachycardia 2D Dimensions LVEF (Dennison's) 63.00 % F: 54 - 74 LV Volume 88.30 mL F: 46 - 106 LV Volume Index 52.9 mL/m2 F: 29 - 61 LA Volume 32.30 mL LA Volume Index 19.34 mL/m2 (M/F) 16-34 EF AP4 58.50 % EF AP2 66.6 % EF BP 63.0 % GL Strain -25.0 % M-Mode Dimensions RVDd 2.50 cm (0.9-2.6) LA Diam 2.99 cm (1.9-4.0) LVDd 4.28 cm (3.5-5.7) LVDs 3.06 cm (3.5-5.7) IVSd 0.81 cm (0.6-1.1) PWd 0.84 cm (0.6-1.1) EF (Teich) 55.40% FS 28.50% EDV (Teich) 82.20 mL TAPSE 3.03 (<1.7) ESV (Teich) 36.70 mL LV Diastology E Decel Time 217 (160-240 msec) E/A Ratio 1.6 Mitral Valve MV E Max Rolf. 107.0 (40-130 cm/s) MV A Velocity 65.0 (40-130 cm/s) E/A Ratio 1.66 MV PHT 63.0 ms Left Ventricle The left ventricle is normal size. The left ventricular systolic function is normal. The left ventricular ejection fraction is within the normal range. There is normal left ventricular wall thickness. There is normal LV segmental wall motion. The left ventricular diastolic function is normal. LVEF is 55%. Right Ventricle The right ventricle is normal size. The right ventricular systolic function is normal. Atria The left atrium size is normal. The right atrium size is normal. There is no Doppler evidence of interatrial shunt. Aortic Valve The aortic valve opens well. There is no aortic valvular stenosis. No aortic regurgitation is present. Mitral Valve The mitral valve is normal in structure. No evidence of mitral valve stenosis. There is no mitral valve regurgitation noted. Tricuspid Valve Tricuspid valve is grossly normal in structure and function. Trace tricuspid regurgitation. There is insufficient TR jet to estimate RVSP. Pulmonic Valve The pulmonary valve is normal in structure. Trace pulmonic regurgitation. Great Vessels The aortic root is normal in size. IVC is normal in size and collapses >50% with inspiration. Pericardium There is no pericardial effusion. Other Information Study Quality: Adequate Conclusion Normal biventricular systolic function. No significant valvular stenosis or regurgitation. Electronically signed by : Gabi Olivera MD 02/28/2025 17:33:29
--- NOTE | 2025-02-20 15:00 | CT_ITS ---
FINAL REPORT TECHNIQUE: Axial CT images were performed from the lung bases through the iliac crests. Coronal and sagittal reformats were submitted.This study was performed with techniques to keep radiation doses as low as reasonably achievable (ALARA). Individualized dose reduction techniques using automated exposure control or adjustment of mA and/or kV according to the patient''''s size were employed. CLINICAL HISTORY: inappropriate sinus tachycardia, recent gb surgery FINDINGS: The liver parenchyma is homogeneous. The gallbladder is absent. The spleen, pancreas, adrenals, and kidneys are unremarkable. The appendix is normal. Moderate stool is seen throughout the colon. IMPRESSION: Moderate constipation. Status postcholecystectomy. Reviewed, Interpreted and Dictated by Manoj Patel MD Transcribed by Shari Good Authenticated and [facility]
== END 2025-02-20 23:59 | disposition home or self-care (01) ==
LOC: RT 14:03
PROVIDERS: PCP Pediatrics; Visit Provider Physician Assistant
DX: K59.00 Constipation, unspecified (principal); I47.11 Inappropriate sinus tachycardia, so stated; F41.9 Anxiety disorder, unspecified; Z90.49 Acquired absence of other specified parts of digestive tract
CPT/HCPCS: 74150; 93306